=== PATIENT | female | born 1985 | race Caucasian/White ===

== ENCOUNTER 2017-12-25 07:59 | Emergency (ER) | payer OTHER ==
[2017-12-25 08:18] VITALS: BMI 27.8
--- NOTE | 2017-12-25 08:27 | PDOC ---
History of Present Illness - General Chief Complaint: Shortness of Breath Stated Complaint: FEVER, COUGH,CHEST PAIN Time Seen by Provider: 12/25/17 08:23 History Source: Patient, Parent(s) (Mother) Exam Limitations: No Limitations (Mother translating for pt) - History of Present Illness Initial Comments: Pt is a 32 yo F, with no significant PMH, who is presenting with dry cough and SOB x5 days. Pt states the cough has been non-productive, with no sputum or hemoptysis. She states the extended coughing is causing a feeling of chest pressure. Pt denies any fevers/chills, headache, vision changes, nausea/vomiting , abdominal pain, diarrhea/constipation, or leg swelling. Pt came from [place] 4 years ago, no recent travel or other sick contacts. Pt last took 400 mg Ibuprofen at 3 am night before presentation, with temporary relief of symptoms. Pt was seen at [facility] 4 days ago, provided 3 day azithromycin (z-pack) with no relief of symptoms. Past surgeries include ovarian cyst removal and colostomy bag placement, after an intestinal injury during the surgery. 12/26/17 14:05 12/26/17 14:41 Past History - Travel Traveled outside of the country in the last 30 days: No Close contact w/someone who was outside of country & ill: No - Past Medical History Allergies/Adverse Reactions: Allergies Allergy/AdvReac Type Severity Reaction Status Date / Time No Known Allergies Allergy Verified 12/25/17 08:04 Home Medications: Ambulatory Orders Acetaminophen [Tylenol] 650 mg PO QID PRN 12/25/17 Guaifenesin Dm [Mucinex Dm -] 1 tab PO BID 12/25/17 COPD: No CHF: No DVT: No HTN: No Hypercholesterolemia: No - Surgical History GI Surgery: Yes (colon resection/colostomy w/ reversal 2007) - Suicide/Smoking/Psychosocial Hx Smoking History: Never smoked Review of Systems - Review of Systems Able to Perform ROS?: Yes Is the patient limited Slovenian proficient: No Constitutional: Yes: Weight Stable. No: Chills, Diaphoresis, Fever, Loss of Appetite, Night Sweats, Weakness HEENTM: No: Blurred Vision, Recent change in vision, Nose Congestion, Throat Pain, Throat Swelling, Difficulty Swallowing Respiratory: Yes: Cough, Shortness of Breath. No: Orthopnea, SOB at Rest, Wheezing, Productive cough, Hemoptysis Cardiac (ROS): Yes: Chest Tightness (chest pressure after coughing). No: Chest Pain, Edema, Irregular Heart Rate, Lightheadedness, Palpitations, Syncope ABD/GI: No: Blood Streaked Bowels, Constipated, Diarrhea, Nausea, Poor Appetite , Poor Fluid Intake, Vomiting, Abdominal cramping : No: Dysuria, Frequency, Flank Pain, Hematuria, Incontinence, Pain, Urgency Musculoskeletal: No: Back Pain, Joint Pain, Muscle Weakness Integumentary: No: Bruising, Rash Neurological: No: Headache, Numbness, Seizure, Weakness, Unsteady Gait, Ataxia, Dizziness Psychiatric: No: Sleep Pattern Change, Change in Appetite Endocrine: No: Increased Urine, Change in Weight Hematologic/Lymphatic: No: Anemia, Blood Clots, Easy Bleeding, Easy Bruising *Physical Exam - Vital Signs Last Vital Signs Temp Pulse Resp BP Pulse Ox 98.2 F 111 H 20 117/78 97 12/25/17 08:07 12/25/17 08:07 12/25/17 08:07 12/25/17 08:07 12/25/17 08:07 - Physical Exam General Appearance: Yes: Nourished, Appropriately Dressed. No: Apparent Distress (Pt lying comfortably, tachycardic but pt shows no increased work of breathing.) HEENT: positive: EOMI, JANIA, Normal ENT Inspection, Normal Voice, Symmetrical, Pharynx Normal, Hearing Grossly Normal. negative: Scleral Icterus (R), Scleral Icterus (L), Pharyngeal Erythema, Tonsillar Exudate, Tonsillar Erythema, Nasal Congestion, Rhinorrhea Neck: positive: Trachea midline, Normal Thyroid, Supple. negative: Tender, Rigid, Lymphadenopathy (R), Lymphadenopathy (L) Respiratory/Chest: positive: Chest Tender (focal chest tenderness with palpation of anterior chest wall), Lungs Clear, Normal Breath Sounds, Labored Respiration (during pulmonary exam with deep breaths). negative: Respiratory Distress, Accessory Muscle Use, Rapid RR, Paradoxal Breathing, Crackles, Wheezing, Dullness, Plerual Rub Cardiovascular: positive: Regular Rhythm, S1, S2, Tachycardia. negative: Regular Rate, Edema, JVD, Murmur Vascular Pulses: Carotid (R): 4+, Carotid (L): 4+ Gastrointestinal/Abdominal: positive: Normal Bowel Sounds, Flat, Soft, Other ( midline well healed scar from prior abdominal surgeries). negative: Tender, Organomegaly, Pulsatile Mass Rectal Exam: positive: deferred Lymphatic: negative: Adenopathy, Tenderness Musculoskeletal: positive: Normal Inspection. negative: CVA Tenderness Extremity: positive: Normal Capillary Refill, Normal Inspection, Normal Range of Motion, Pelvis Stable. negative: Tender, Pedal Edema, Calf Tenderness Integumentary: positive: Normal Color, Dry, Warm, Other (mild decreased skin turgor in hands). 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 negative: Numbness, Sensory Deficit ED Treatment Course - LABORATORY CBC & Chemistry Diagram: 12/25/17 08:56 12/25/17 08:56 Medical Decision Making - Medical Decision Making Pt was seen at bedside, also will be seen by attending Dr. Ortiz. Pt presenting with dry cough and SOB x5 days. Pt states the cough has been non-productive, with no sputum or hemoptysis. She states the extended coughing is causing a feeling of chest pressure. Pt denies any fevers/chills, headache, vision changes , nausea/vomiting, abdominal pain, diarrhea/constipation, or leg swelling. Pt came from [place] 4 years ago, no recent travel or other sick contacts. Pt was seen at [facility] 4 days ago, provided 3 day azithromycin (z-pack) with no relief of symptoms. PE showed stable vitals, tachycardic (to 111), afebrile. Lung and heart sounds clear, no crackles or wheezes, good air movement. Mildly tachypneic during pulmonary exam. Considering viral URI vs bacterial pneumonia/bronchitis vs pleural effusion. Pt low risk for PE (no recent travel/surgeries, no estrogen use, no past DVTs). Ordered work-up including CBC, CMP, Mg, UA, urine , blood cultures, chest x-ray. Provided 1 g ofirmev and 1 L NS for improvement of [pain/symptom control]. Will continue to reassess pt and monitor for symptomatic improvement. 12/25/17 09:09 Labs sent, pending results. 12/25/17 09:09 CBC and CMP generally WNL. UA negative for infection, beta-hcg negative. Influenza swab negative for Flu A and B. ECG showed NSR, normal intervals, no sign of R heart strain, HR 88. Pt taken for chest x-ray. 12/25/17 09:39 Chest x-ray showed bi-basilar scarring or atelectasis. No acute process seen. Pt states SOB and symptoms have improved from 1 g Ofirmev and albuterol nebulizer treatment. Pt vitals stable, no longer tachycardic and dyspneic. Most likely viral URI. Considering normal lab results and imaging pt can be discharged to home with follow-up. Pt advised to follow-up with PCP in 1-2 days. Strict return precautions provided with pt understanding. 12/25/17 10:08 12/25/17 10:15 12/26/17 13:53 12/26/17 14:44 *DC/Admit/Observation/Transfer Diagnosis at time of Disposition: Viral URI - Discharge Dispostion Disposition: HOME Condition at time of disposition: Good Decision to Admit order: No - Referrals Referrals: Flavio Chapa MD [Non Staff, Medical] - - Patient Instructions Printed Discharge Instructions: DI for Viral Upper Respiratory Infection -- Adult Additional Instructions: You were seen in the ER today for cough and shortness of breath. The results of your labs and imaging today were normal. Please follow-up with your primary care doctor within 1-2 days to discuss your visit and make sure your symptoms have improved. Please return to the ER if you have any worsening pain, worsening fevers or chills, productive sputum or blood with coughing, loss of consciousness, inability to tolerate food or fluids, or any other concerns. You can continue to take tylenol or ibuprofen over the counter for pain and fever. - Post Discharge Activity
[2017-12-25] MEDS ORDERED: ACETAMINOPHEN 1000 MG/100 ML VIAL (NON FORMULARY) IVPB ONE (08:48)
[2017-12-25] MEDS ORDERED: ALBUTEROL SO4 0.083% IH SOL 2.5 MG/3 ML VIAL.NEB. NEB ONE (08:48)
[2017-12-25] MEDS ORDERED: ALBUTEROL SO4 2.5/IPRATROPIUM 0.5 INH SOL 3 ML VIAL.NEB. NEB ONE (09:06)
[2017-12-25] MEDS ORDERED: ACETAMINOPHEN INJECTION 100 ML IVPB ONE (09:07)
[2017-12-25 09:10] LABS: BASO % 0.7 % (0-2.0); EOS % 1.3 % (0-4.5); HEMATOCRIT 37.5 % (32.4-45.2); HEMOGLOBIN 12.5 GM/dL (10.7-15.3); LYMPH % 35.1 % (8-40); MCHC 33.4 g/dl (32.0-36.0); MEAN PLT VOLUME 8.3 fl (7.5-11.1); MONO % 6.8 % (3.8-10.2); NEUT % 56.1 % (42.8-82.8); PLATELET COUNT 316 K/MM3 (134-434); RBC 4.81 M/mm3 (3.60-5.2); RDW 15.5 % (11.6-15.6); WHITE BLOOD COUNT 5.8 K/mm3 (4.0-10.0)
--- NOTE | 2017-12-25 09:11 | PDOC ---
Attending Attestation - Resident Resident Name: ReoCarmelina - ED Attending Attestation I have performed the following: I have examined & evaluated the patient, The case was reviewed & discussed with the resident, I agree w/resident's findings & plan, Exceptions are as noted - HPI HPI: 12/25/17 09:08 32y F hx of ovarian cysts, presents with nonproductive cough / sore throat for approx 1 week. Patient states the symptoms started with a dry cough as well as a sore throat, she went to [facility] was given a Z-Filiberto and diagnosed with bronchitis. Patient notes that since then she had felt generally weak, he'll have the cough so presented for evaluation. Patient endorses mild chest pain when she is coughing however when she is not coughing she denies any discomfort all she also denies any dyspnea on exertion, hemoptysis, leg swelling. The patient has had no recent travel history. The patient's mother was also sick with URI like symptoms. Patient is not on any exogenous steroids - Physicial Exam PE: 12/25/17 10:02 GENERAL: The patient is awake, alert, and fully oriented, Nontoxic - in no acute distress. HEAD: Normocephalic, atraumatic. EYES: extraocular movements intact, sclera anicteric, conjunctiva clear. ENT: Normal voice, Moist mucous membranes. NECK: Normal range of motion, supple LUNGS: Breath sounds equal, clear to auscultation bilaterally. No wheezes, no rhonchi, no rales. HEART: Regular rate and rhythm, normal S1 and S2 without murmur, rub or gallop. ABDOMEN: Soft, nontender. No CVA tenderness EXTREMITIES: Normal range of motion, no edema. No calf tenderness, negative Homans sign NEUROLOGICAL: No facial assymetry, Normal speech PSYCH: Normal mood, normal affect. SKIN: Warm, Dry, normal turgor, - Medical Decision Making 12/25/17 10:04 32-year-old female presenting with URI like symptoms, noted be tachycardic at triage however she is well-appearing with an otherwise unremarkable physical exam. Suspect that her symptoms are secondary to her URI The patient is feeling improved currently As of tachypnea when manipulating x-ray Her is chest x-ray is negative for acute pulmonary disease, there is some atelectasis noted which was noted on prior x-ray. We'll discharge patient with supportive care and PMD follow-up Heart Score/ECG Review - ECG Impressions Comment:: 12/25/17 09:42 Twelve-lead EKG was performed and reviewed by me. There is normal sinus rhythm with a normal rate. Rate of 88 The axis is normal. The intervals are normal. There are no ST or T wave abnormalities.
[2017-12-25 09:18] LABS: HCG,QUALITATIVE URINE Negative
[2017-12-25 09:26] LABS: URINE APPEARANCE CLEAR; URINE BILIRUBIN NEGATIVE (<2.0 mg/dL); URINE COLOR YELLOW; URINE GLUCOSE (UA) NEGATIVE (NEGATIVE); URINE KETONE NEGATIVE (NEGATIVE); URINE LEUK ESTERASE NEGATIVE (NEGATIVE); URINE NITRITE NEGATIVE (NEGATIVE); URINE PROTEIN NEGATIVE (NEGATIVE); URINE UROBILINOGEN NEGATIVE mg/dL (0.2-1.0)
[2017-12-25 09:34] LABS: ALBUMIN 3.6 g/dl (3.4-5.0); ALK PHOS 64 U/L (45-117); ANION GAP 12 MMOL/L (8-16); BILIRUBIN,TOTAL 0.4 mg/dL (0.2-1); BLOOD UREA NITROGEN 12 mg/dL (7-18); CALCIUM 8.5 mg/dL (8.5-10.1); CHLORIDE 107 mmol/L (98-107); CO2 22 mmol/L (21-32); CREATININE 0.7 mg/dL (0.55-1.3); GLUCOSE,RANDOM 125 mg/dL (74-106); POTASSIUM 3.6 mmol/L (3.5-5.1); SGOT/AST 37 U/L (15-37); SGPT/ALT 55 U/L (13-61); SODIUM 141 mmol/L (136-145); TOT PROT 7.4 g/dl (6.4-8.2)
[2017-12-25 11:01] VITALS: BP 105/72; PULSE 86; TEMP 98.8
--- NOTE | 2017-12-26 12:10 | EKG ---
Test Reason : Blood Pressure : / mmHG Vent. Rate : 088 BPM Atrial Rate : 088 BPM P-R Int : 154 ms QRS Dur : 100 ms QT Int : 382 ms P-R-T Axes : 052 007 049 degrees QTc Int : 462 ms NORMAL SINUS RHYTHM NORMAL ECG NO PREVIOUS ECGS AVAILABLE Confirmed by MD HUMZA, RAYNE ([id number]) on 12/26/2017 12:09:42 PM Referred By: Confirmed By:RAYNE CHING MD
== END 2017-12-25 11:01 | disposition home or self-care (01) ==
LOC: JER 07:59
PROC: 3E0F7GC Introduction of Other Therapeutic Substance into Respiratory Tract, Via Natural or Artificial Opening (ICD-10-PCS; principal; 2017-12-25)
PROC: 3E033NZ Introduction of Analgesics, Hypnotics, Sedatives into Peripheral Vein, Percutaneous Approach (ICD-10-PCS; 2017-12-25)
DX: J06.9 Acute upper respiratory infection, unspecified (principal); B97.89 Other viral agents as the cause of diseases classified elsewhere
CPT/HCPCS: 36415; 71046-TC-FY; 80053; 81003; 83735; 84703; 85025; 87040; 87086; 87804; 93005; 93010; 94640; 96374; 99282-25; J0131

== ENCOUNTER 2018-05-27 12:24 | Inpatient (IN) | payer OTHER ==
[2018-05-27 12:28] VITALS: BMI 29.5
--- NOTE | 2018-05-27 12:58 | PDOC ---
History of Present Illness - General Chief Complaint: Pain Stated Complaint: COLD SYMPTOMS Time Seen by Provider: 05/27/18 12:49 - History of Present Illness Initial Comments: 05/27/18 13:14 32 year old woman G0 who presents with LLQ pain that is shjarp and rated 10/10 onset today at 0500 and has been cosntant since onset, she took an Advil now with weakness and dizziness while at work. The patient denies any fever at home. She admits to some nausea but denies any vomitign. denies diarrhea or constipation. She reports a history of abdomianl surgeries that occurred in [place] with an apparant removal of the fallopian tube that nicked the intestine 10 years ago and complication of colon resection, colostomy and reversal, the patient is unclear about the details of her surgery. The patient had a normal bm this AM but as not passed gas since this AM. She deneis chest pain, shortness of breath, recent travel or illness. Has no other complaints at bedside. [facility] 05/14/18 Past History - Past Medical History Allergies/Adverse Reactions: Allergies Allergy/AdvReac Type Severity Reaction Status Date / Time No Known Allergies Allergy Verified 05/27/18 12:28 Home Medications: Ambulatory Orders Acetaminophen [Tylenol] 650 mg PO QID PRN 12/25/17 COPD: No CHF: No DVT: No HTN: No Hypercholesterolemia: No - Surgical History GI Surgery: Yes (colon resection/colostomy w/ reversal 2007) - Suicide/Smoking/Psychosocial Hx Smoking History: Never smoked Review of Systems - Review of Systems Able to Perform ROS?: Yes Is the patient limited Croatian proficient: No Constitutional: No: Chills, Diaphoresis, Fever HEENTM: No: Blurred Vision, Tinnitus Respiratory: No: Cough, Orthopnea, Shortness of Breath, Hemoptysis Cardiac (ROS): No: Chest Pain, Lightheadedness, Palpitations, Syncope ABD/GI: Yes: Nausea. No: Constipated, Diarrhea, Vomiting : No: Burning, Dysuria, Flank Pain, Hematuria Musculoskeletal: No: Back Pain, Muscle Pain, Muscle Weakness Neurological: No: Headache, Numbness, Tingling *Physical Exam - Vital Signs Last Vital Signs Temp Pulse Resp BP Pulse Ox 101.5 F H 140 H 20 119/71 99 05/27/18 12:25 05/27/18 12:25 05/27/18 12:25 05/27/18 12:25 05/27/18 12:25 - Physical Exam Comments: 05/27/18 13:35 GENERAL: Awake, alert, and fully oriented, in no acute distress HEAD: No signs of trauma, normocephalic, atraumatic EYES: EOMI, sclera anicteric, conjunctiva clear ENT: oropharynx clear without exudates. Moist mucosa NECK: Normal ROM, supple LUNGS: No distress, speaks full sentences, clear to auscultation bilaterally HEART: Regular rate and rhythm, normal S1 and S2, no murmurs, rubs or gallops, peripheral pulses normal and equal bilaterally. ABDOMEN: Soft, LLQ tenderness normoactive bowel sounds. No guarding, no rebound. No masses EXTREMITIES : Normal inspection, Normal range of motion, no edema. No clubbing or cyanosis. NEUROLOGICAL: Cranial nerves II through XII grossly intact. Normal speech, no focal sensorimotor deficits SKIN: Warm, Dry, normal turgor, no rashes or lesions noted PELVIC: closed cervical os, thick white physiologic fluid, moderate CMT, no R adnexal tenderness ED Treatment Course - LABORATORY CBC & Chemistry Diagram: 05/27/18 13:25 05/27/18 13:02 Medical Decision Making - Medical Decision Making 05/27/18 13:19 32 year old woman G0 who presents with LLQ pain that is shjarp and rated 10/10 onset today at 0500 and has been cosntant since onset now with weakness and dizziness. The patient denies any fever at home. She admits to some nausea but denies any vomtiign. denies diarrhea or constipation. She reports a history of abdomianl surgeries that occurred in [place] with an apparant removal of the fallopian tube that nicked the intestine 10 years ago and complication of colon resection, colostomy and reversal, the patient is unclear about the details of her surgery. The patient had a normal bm this AM. ED course: ddx inblt: TOA vs ovarian torsion vs ectopic consider sbo as with abdominal surgical history patient less likely nephrolithiasis vs pyelo as patient without cva tenderness, without dyrusia heamturai less likely diverticular as iwthout diarreha, blodo in stool cbc, cmp, tvus, ua, ucx upreg fluids, tylenol, zofran 05/27/18 14:55 negative upreg, small UTI pateint reassessed, feels spme improvmenet of pain, still has LLQ tenderness 05/27/18 15:33 TVUS: paraovarian cyst unlikely to be TOA will order CTAP w/ IV contrast considering patient persistent LLQ pain 05/27/18 18:40 Patient reassessed Still has LLQ pain, temp 101.3F oral 05/27/18 19:04 OBGYN called,aware of patient will come see patient in AM, based on TVUS does not feel patient will need IRdrainaige however discusssed discrepancy in sice of mass on CT vs US. Patient to be admitted to medicine. discussed case with medicine resident. *DC/Admit/Observation/Transfer Diagnosis at time of Disposition: Tubo-ovarian abscess - Discharge Dispostion Condition at time of disposition: Fair Decision to Admit order: Yes - Referrals - Patient Instructions - Post Discharge Activity
[2018-05-27] MEDS ORDERED: SODIUM CHLORIDE 1,000 ML IV SCH ×2 (13:00→20:15)
[2018-05-27] MEDS ORDERED: ACETAMINOPHEN 1000 MG/100 ML VIAL (NON FORMULARY) IVPB ONE ×2 (13:00→18:40)
[2018-05-27] MEDS ORDERED: ACETAMINOPHEN INJECTION 100 ML IVPB ONE ×2 (13:10→19:31)
[2018-05-27] MEDS ORDERED: ONDANSETRON 4 MG/2 ML VIAL IVPUSH ONE (13:19)
[2018-05-27 13:22] LABS: EPI CELLS 8.8 /HPF (0-5); HCG,QUALITATIVE URINE Negative; URINE APPEARANCE CLEAR; URINE BACTERIA 159.4 /hpf (NEGATIVE); URINE BILIRUBIN NEGATIVE (NEGATIVE); URINE CASTS 2 /hpf (0-8); URINE COLOR YELLOW; URINE GLUCOSE (UA) NEGATIVE (NEGATIVE); URINE KETONE NEGATIVE (NEGATIVE); URINE LEUK ESTERASE 1+ (NEGATIVE); URINE NITRITE NEGATIVE (NEGATIVE); URINE PROTEIN NEGATIVE (NEGATIVE); URINE RBC 5 /hpf (0-4); URINE UROBILINOGEN 0.2 mg/dL (0.2-1.0); URINE WBC 16 /hpf (0-5)
--- NOTE | 2018-05-27 13:22 | PDOC ---
Attending Attestation - Resident Resident Name: Marissa Gallardo - ED Attending Attestation I have performed the following: I have examined & evaluated the patient, The case was reviewed & discussed with the resident, I agree w/resident's findings & plan, Exceptions are as noted - HPI HPI: 05/27/18 16:47 The patient is a 32-year-old female, with no past medical history, who presents to the ED with sudden onset of LLQ pain and fever this morning at 5AM. The patient describes the pain as constant, [id number], 10/10 in severity, nonradiating. Patient took Advil and proceeded to go to work. She became dizzy and weak and called her who brought the patient to the ER. She reports nausea, but no vomiting. Patient had a normal bowel movement this morning but states that she has not been passing gas. The patient has a history of fallopian tube removal (she is unsure which side) with a complication of partial colon resection/colostomy with reversal in 2007. The patient denies any chills, diarrhea, or constipation. Denies any urinary symptoms. Denies any chest pain or shortness of breath. Allergies: NKA Social History: None reported. Surgical History: Colon resection/colostomy with reversal 2007. PCP: Dr. Flavio Chapa. - Physicial Exam PE: 05/27/18 17:52 agree with resident exam - Medical Decision Making 05/27/18 17:52 32yo F presents to the ED with LLQ pain. Vitals with fever, tachycardia. +L adnexal ttp. +WBC 11. UPT neg. DDx includes TOA vs ovarian cyst vs diverticulitis vs colitis. TVUS with L paraovarian cyst vs TOA. Plan for CTAP to r/o other pathology which is pending. Case signed out to Dr. Pollard for f/u on diagnostics and dispo
[2018-05-27 13:33] LABS: BASO % 0.7 % (0-2.0); EOS % 0.1 % (0-4.5); HEMATOCRIT 36.5 % (32.4-45.2); HEMOGLOBIN 11.7 GM/dL (10.7-15.3); LYMPH % 12.5 % (8-40); MCH 24.5 pg (25.7-33.7); MEAN CELL VOLUME 76.6 fl (80-96); MEAN PLT VOLUME 8.3 fl (7.5-11.1); MONO % 7.8 % (3.8-10.2); NEUT % 78.9 % (42.8-82.8); PLATELET COUNT 263 K/MM3 (134-434); RBC 4.77 M/mm3 (3.60-5.2); RDW 17.1 % (11.6-15.6); WHITE BLOOD COUNT 11.4 K/mm3 (4.0-10.0)
[2018-05-27] MEDS ORDERED: ONDANSETRON 4 MG/2 ML VIAL ONE (13:36)
[2018-05-27 14:19] LABS: ALBUMIN 3.8 g/dl (3.4-5.0); ALK PHOS 61 U/L (45-117); ANION GAP 9 MMOL/L (8-16); BILIRUBIN,TOTAL 0.5 mg/dL (0.2-1); BLOOD UREA NITROGEN 11 mg/dL (7-18); CALCIUM 8.5 mg/dL (8.5-10.1); CHLORIDE 105 mmol/L (98-107); CO2 24 mmol/L (21-32); CREATININE 0.7 mg/dL (0.55-1.3); GLUCOSE,RANDOM 81 mg/dL (74-106); POTASSIUM 3.7 mmol/L (3.5-5.1); SGOT/AST 36 U/L (15-37); SGPT/ALT 50 U/L (13-61); SODIUM 138 mmol/L (136-145); TOT PROT 7.4 g/dl (6.4-8.2)
[2018-05-27] MEDS ORDERED: HYDROmorphone HCL CARPU-JECT 2 MG/1 ML DISP.SYRIN IVPUSH ONE (18:32)
--- NOTE | 2018-05-27 18:46 | PDOC ---
*Physical Exam - Vital Signs Last Vital Signs Temp Pulse Resp BP Pulse Ox 101.5 F H 140 H 20 119/71 99 05/27/18 12:25 05/27/18 12:25 05/27/18 12:25 05/27/18 12:25 05/27/18 12:25 ED Treatment Course - LABORATORY CBC & Chemistry Diagram: 05/27/18 13:25 05/27/18 13:02 - ADDITIONAL ORDERS Additional order review: Laboratory Results 05/27/18 05/27/18 05/27/18 14:20 13:05 13:02 Sodium 138 Potassium 3.7 Chloride 105 Carbon Dioxide 24 Anion Gap 9 BUN 11 Creatinine 0.7 Creat Clearance w eGFR 97.60 Random Glucose 81 Lactic Acid 2.0 Calcium 8.5 Total Bilirubin 0.5 AST 36 ALT 50 Alkaline Phosphatase 61 Total Protein 7.4 Albumin 3.8 Urine Color Yellow Urine Appearance Clear Urine pH 5.0 Ur Specific [place] 1.021 Urine Protein Negative Urine Glucose (UA) Negative Urine Ketones Negative Urine Blood Negative Urine Nitrite Negative Urine Bilirubin Negative Urine Urobilinogen 0.2 Ur Leukocyte Esterase 1+ H Urine WBC (Auto) 16 Urine RBC (Auto) 5 Urine Casts (Auto) 2 U Epithel Cells (Auto) 8.8 Urine Bacteria (Auto) 159.4 Urine HCG, Qual Negative 05/27/18 13:25 RBC 4.77 MCV 76.6 L MCHC 32.0 RDW 17.1 H MPV 8.3 Neutrophils % 78.9 D Lymphocytes % 12.5 D Monocytes % 7.8 Eosinophils % 0.1 D Basophils % 0.7 - Medications Given in the ED: ED Medications Discontinued Medications Generic Name Dose Route Start Last Admin Trade Name Rosalia PRN Reason Stop Dose Admin Acetaminophen 1,000 mg 05/27/18 13:00 05/27/18 13:24 Ofirmev Injection - IVPB 05/27/18 13:01 1,000 mg ONCE ONE Administration Ondansetron HCl 4 mg 05/27/18 13:19 05/27/18 13:44 Zofran Injection IVPUSH 05/27/18 13:20 4 mg ONCE ONE Administration Medical Decision Making - Medical Decision Making 05/27/18 18:34 32 yo female with PSH of abd surgery in [place] 10 years ago and presents with left lower quadrant, left pelvic pain and 101.5 oral temperature 05/27/18 19:44 CAT scan abdomen and pelvis reveals findings consistent with a tubo-ovarian abscess. Patient admitted for IV antibiotics and Gynecological consult *DC/Admit/Observation/Transfer Diagnosis at time of Disposition: Tubo-ovarian abscess - Discharge Dispostion Condition at time of disposition: Fair - Referrals - Patient Instructions - Post Discharge Activity
[2018-05-27] MEDS ORDERED: CLINDAMYCIN 900 MG PREMIX IVPB 900 MG/50 ML BAG IVPB ONE ×2 (19:02→19:08)
[2018-05-27] MEDS ORDERED: HYDROmorphone HCl 2 MG/ML VIAL ONE (19:08)
[2018-05-27] MEDS ORDERED: GENTAMICIN INJECTION 350 MG in SODIUM CHLORIDE 100 ML IVPB SCH (19:15)
[2018-05-27] MEDS ORDERED: GENTAMICIN IVPB SCH (19:37)
[2018-05-27] MEDS ORDERED: SODIUM CHLORIDE IVPB SCH (19:37)
--- NOTE | 2018-05-27 19:53 | HP ---
CHIEF COMPLAINT: sever abdominal pain PCP: Dr Flavio Seymour HISTORY OF PRESENT ILLNESS: 32 year old female chema speaking with pmhx of asthma presented to ED with one day history of sever abdominal pain, fever chills, N/V. The pain is LLQ , 9/10 , local non radiating ,started at 5 am continuous , worsening with movement or coughing , improved a little with naproxen that she take around 6 am , associated with nausea and one episode on NBNB vomiting,and generalized weakness , headache B/L frontal , and lightheadedness especially when she get up of bed. she never had similar pain in the past , pt LMP 2 weeks ago, she did not have her period in Feb,, with no kids , she denies any history of STDs, denies any genital rash ,or discharges ,denies itching , bad urine smell,dysuria , hematuria denies any HBV vaccine , last pap smear last December was normal, pt denies any cough , sob , chest pain , D/C, denies any back pain but reports hand and leg weakness started today. pt has a history of ovarian cust removed in [facility] and surgery was complicated with intestine perforation followed by 6 surgery on her abdomen. pt reports 30 pound weight gain in last 3 months after she quit her job due to asthma . cuurently working in [employer] business denies any recent cold or sick contact ER course was notable for: (1)cbc, cmp wbc 11.4 , LA 2 (2)trans vaginal sonogram (3)CT A/P Recent Travel: denies PAST MEDICAL HISTORY: Asthma PAST SURGICAL HISTORY: ovarian cyst complicated by intestinal perforation Social History: Smoking:denies Alcohol:denies Drugs: denies Family History:none Allergies No Known Allergies Allergy (Verified 05/27/18 12:28) HOME MEDICATIONS: Home Medications Medication Instructions Recorded Acetaminophen [Tylenol] 650 mg PO QID PRN 12/25/17 REVIEW OF SYSTEMS CONSTITUTIONAL: Absent: fever, chills, diaphoresis, generalized weakness, malaise, loss of appetite, weight change HEENT: Absent: rhinorrhea, nasal congestion, throat pain, throat swelling, difficulty swallowing, mouth swelling, ear pain, eye pain, visual changes CARDIOVASCULAR: Absent: chest pain, syncope, palpitations, irregular heart rate, lightheadedness , peripheral edema RESPIRATORY: Absent: cough, shortness of breath, dyspnea with exertion, orthopnea, wheezing, stridor, hemoptysis GASTROINTESTINAL: Absent: abdominal pain, abdominal distension, nausea, vomiting, diarrhea, constipation, melena, hematochezia GENITOURINARY: Absent: dysuria, frequency, urgency, hesitancy, hematuria, flank pain, genital pain MUSCULOSKELETAL: Absent: myalgia, arthralgia, joint swelling, back pain, neck pain SKIN: Absent: rash, itching, pallor HEMATOLOGIC/IMMUNOLOGIC: Absent: easy bleeding, easy bruising, lymphadenopathy, frequent infections ENDOCRINE: Absent: unexplained weight gain, unexplained weight loss, heat intolerance, cold intolerance NEUROLOGIC: Absent: headache, focal weakness or paresthesias, dizziness, unsteady gait, seizure, mental status changes, bladder or bowel incontinence PSYCHIATRIC: Absent: anxiety, depression, suicidal or homicidal ideation, hallucinations. PHYSICAL EXAMINATION Vital Signs - 24 hr 05/27/18 05/27/18 12:25 19:25 Temperature 101.5 F H 100.0 F H Pulse Rate 140 H Pulse Rate [ 118 H Right Radial] Respiratory 20 18 Rate Blood Pressure 119/71 Blood Pressure 93/53 L [Left Arm] O2 Sat by Pulse 99 93 L Oximetry (%) GENERAL: Awake, alert, and fully oriented, in no acute distress. HEAD: Normal with no signs of trauma. EYES: Pupils equal, round and reactive to light, extraocular movements intact, EARS, NOSE, THROAT:dry mucous membranes. NECK: Normal range of motion, supple LUNGS: Breath sounds equal, clear to auscultation bilaterally. No wheezes, and no crackles. No accessory muscle use. HEART: sinus tachy , normal S1 and S2 without murmur, rub or gallop. ABDOMEN:obese , Soft, LLQ and supra pubic tenderness , not distended, normoactive bowel sounds, surgical scar longitudinal and LLQ scar from previous cholostomy MUSCULOSKELETAL: Normal range of motion at all joints. No CVA tenderness. UPPER EXTREMITIES: 2+ pulses, warm, well-perfused. No cyanosis. No clubbing. No peripheral edema. LOWER EXTREMITIES: 2+ pulses, warm, well-perfused. No calf tenderness. No peripheral edema. NEUROLOGICAL: Cranial nerves II-XII intact. Normal speech. PSYCHIATRIC: Cooperative. SKIN: Warm, dry, normal turgor, Laboratory Results - last 24 hr 05/27/18 05/27/18 05/27/18 13:02 13:05 13:13 WBC RBC Hgb Hct MCV MCH MCHC RDW Plt Count MPV Absolute Neuts (auto) Neutrophils % Lymphocytes % Monocytes % Eosinophils % Basophils % Nucleated RBC % Sodium 138 Potassium 3.7 Chloride 105 Carbon Dioxide 24 Anion Gap 9 BUN 11 Creatinine 0.7 Creat Clearance w eGFR 97.60 Random Glucose 81 Lactic Acid Calcium 8.5 Total Bilirubin 0.5 AST 36 ALT 50 Alkaline Phosphatase 61 Total Protein 7.4 Albumin 3.8 Urine Color Yellow Urine Appearance Clear Urine pH 5.0 Ur Specific [place] 1.021 Urine Protein Negative Urine Glucose (UA) Negative Urine Ketones Negative Urine Blood Negative Urine Nitrite Negative Urine Bilirubin Negative Urine Urobilinogen 0.2 Ur Leukocyte Esterase 1+ H Urine WBC (Auto) 16 Urine RBC (Auto) 5 Urine Casts (Auto) 2 U Epithel Cells (Auto) 8.8 Urine Bacteria (Auto) 159.4 Urine HCG, Qual Negative Influenza A (Rapid) Negative Influenza B (Rapid) Negative 05/27/18 05/27/18 13:25 14:20 WBC 11.4 H RBC 4.77 Hgb 11.7 Hct 36.5 MCV 76.6 L MCH 24.5 L MCHC 32.0 RDW 17.1 H Plt Count 263 MPV 8.3 Absolute Neuts (auto) 9.0 H Neutrophils % 78.9 D Lymphocytes % 12.5 D Monocytes % 7.8 Eosinophils % 0.1 D Basophils % 0.7 Nucleated RBC % 0 Sodium Potassium Chloride Carbon Dioxide Anion Gap BUN Creatinine Creat Clearance w eGFR Random Glucose Lactic Acid 2.0 Calcium Total Bilirubin AST ALT Alkaline Phosphatase Total Protein Albumin Urine Color Urine Appearance Urine pH Ur Specific [place] Urine Protein Urine Glucose (UA) Urine Ketones Urine Blood Urine Nitrite Urine Bilirubin Urine Urobilinogen Ur Leukocyte Esterase Urine WBC (Auto) Urine RBC (Auto) Urine Casts (Auto) U Epithel Cells (Auto) Urine Bacteria (Auto) Urine HCG, Qual Influenza A (Rapid) Influenza B (Rapid) CBC, BMP 05/27/18 13:25 05/27/18 13:02 Trans vaginal US:05/27/18 Normal appearing uterus with normal thickness of the endometrial stripe. Normal appearing right ovary with multiple small simple cysts/follicles and normal vascular flow. Normal-appearing left ovary with a few small simple cysts /follicles and normal vascular flow. Left adnexal cystic density measuring 2.9 x 2.2 cm abutting the left ovary without peripheral vascular flow. It may represent a paraovarian cyst and less likely a tubular ovarian abscess considering the clinical history. Correlate clinically for further evaluation and follow-up ASSESSMENT/PLAN: 32 year old female with pmhx of asthma presented with one day h/o sever LLQ abdominal pain was found to be sepsis due to ovarian cyst infection vs PID will amdit to M/S for further evaluation. # sepsis due to ovarian /adnexal abscess vs PID * vitals 101.5, hr 140 low BP 93/53,with sever LLQ pain , wbc 11.4 * Sonogram trans vaginal with B/L ovarian cyst and anexal density abscess ?? * CT abdomen pending official reading * IV fluids NS Bolus and maintenance @ 100 CC/hr * Abx gentamycin and clindamycin in ED will cont with Doxycyclin 100 BID , and Cefipim 2 gm IV BID for 10 days * Tylenol and morphine for pain and fever * Consult ID Dr Rosario * Consult OBgyn * LA 2.0 will repeat * repeat lab in AM * will defer vaginal exam to Anvil Worker to find out id there is any cervical neck tenderness * chlamydia, GN , trichomonas and HIV screening # Asthma not on axacerbation * Albuterol PRN for SOB # FEN * regular diet * Monitor lytes * Regular diet # Proph * Dvts: scds , lovenox 40 SQ daily # Dispo * M/S # full code Visit type - Emergency Visit Emergency Visit: Yes ED Registration Date: 05/27/18 Care time: The patient presented to the Emergency Department on the above date and was hospitalized for further evaluation of their emergent condition. - New Patient This patient is new to me today: Yes Date on this admission: 05/28/18 - Critical Care Critical Care patient: No
--- NOTE | 2018-05-27 20:48 | PN ---
Teaching Attending Note Name of Resident: Deyvi Fontana ATTENDING PHYSICIAN STATEMENT I saw and evaluated the patient. I reviewed the resident's note and discussed the case with the resident. I agree with the resident's findings and plan as documented. SUBJECTIVE: This is a 32 year old woman with a history of salpingectomy in 2007 with complication requiring partial colectomy with colostomy which was later reversed who comes to the ED complaining of LLQ abdominal pain and fevers which started suddenly at 5 am today. She took ibuprofen and went to work. Later in the day, she felt weak and dizzy, and so she came to the ED. She has had nausea but no vomiting. Bowel movements have been normal. OBJECTIVE: Vital Signs Period Temp Pulse Resp BP Sys/[place]son Pulse Ox Last 24 Hr 100.0 F-101.5 F 118-140 18-20 93-119/53-71 93-99 HEART: S1S2, tachycardic LUNGS: Clear ABDOMEN: Soft, non-distended, (+) LLQ tenderness, LLQ pain increases with palpation of RLQ EXTREMITIES: No edema Laboratory Tests 05/27/18 05/27/18 05/27/18 13:02 13:05 13:13 WBC RBC Hgb Hct MCV MCH MCHC RDW Plt Count MPV Absolute Neuts (auto) Neutrophils % Lymphocytes % Monocytes % Eosinophils % Basophils % Nucleated RBC % Sodium 138 Potassium 3.7 Chloride 105 Carbon Dioxide 24 Anion Gap 9 BUN 11 Creatinine 0.7 Creat Clearance w eGFR 97.60 Random Glucose 81 Lactic Acid Calcium 8.5 Total Bilirubin 0.5 AST 36 ALT 50 Alkaline Phosphatase 61 Total Protein 7.4 Albumin 3.8 Urine Color Yellow Urine Appearance Clear Urine pH 5.0 Ur Specific [place] 1.021 Urine Protein Negative Urine Glucose (UA) Negative Urine Ketones Negative Urine Blood Negative Urine Nitrite Negative Urine Bilirubin Negative Urine Urobilinogen 0.2 Ur Leukocyte Esterase 1+ H Urine WBC (Auto) 16 Urine RBC (Auto) 5 Urine Casts (Auto) 2 U Epithel Cells (Auto) 8.8 Urine Bacteria (Auto) 159.4 Urine HCG, Qual Negative Influenza A (Rapid) Negative Influenza B (Rapid) Negative 05/27/18 05/27/18 13:25 14:20 WBC 11.4 H RBC 4.77 Hgb 11.7 Hct 36.5 MCV 76.6 L MCH 24.5 L MCHC 32.0 RDW 17.1 H Plt Count 263 MPV 8.3 Absolute Neuts (auto) 9.0 H Neutrophils % 78.9 D Lymphocytes % 12.5 D Monocytes % 7.8 Eosinophils % 0.1 D Basophils % 0.7 Nucleated RBC % 0 Sodium Potassium Chloride Carbon Dioxide Anion Gap BUN Creatinine Creat Clearance w eGFR Random Glucose Lactic Acid 2.0 Calcium Total Bilirubin AST ALT Alkaline Phosphatase Total Protein Albumin Urine Color Urine Appearance Urine pH Ur Specific [place] Urine Protein Urine Glucose (UA) Urine Ketones Urine Blood Urine Nitrite Urine Bilirubin Urine Urobilinogen Ur Leukocyte Esterase Urine WBC (Auto) Urine RBC (Auto) Urine Casts (Auto) U Epithel Cells (Auto) Urine Bacteria (Auto) Urine HCG, Qual Influenza A (Rapid) Influenza B (Rapid) Home Medications Medication Instructions Recorded Acetaminophen [Tylenol] 650 mg PO QID PRN 12/25/17 ASSESSMENT AND PLAN: This is a 32 year old woman with a history of salpingectomy in 2007 with complication requiring partial colectomy with colostomy which was later reversed who presented to the ED with sudden onset of LLQ abdominal pain and fever. 1. Sepsis (fever, tachycardia) secondary to possible infected hydrosalpinx, possible tubo-ovarian abscess, UTI - Patient denies history of STIs - Gentamicin, Clindamycin given in ED - Urine culture pending - Blood cultures not done - will do now, however antibiotics already given - Start Cefepime, doxycycline - IV fluid - Pain control - Repeat lactic acid - Check Chlamydia, gonorrhea - Project Design Engineer, ID consults
[2018-05-27] MEDS ORDERED: GENTAMICIN INJECTION 350 MG in SODIUM CHLORIDE 100 ML IVPB ONE (21:00)
[2018-05-27] MEDS ORDERED: SODIUM CHLORIDE 1,000 ML IV STA (21:11)
[2018-05-27] MEDS ORDERED: MORPHINE SULFATE 2 MG/ML VIAL IVPUSH PRN (21:11)
[2018-05-27] MEDS ORDERED: ACETAMINOPHEN 325 MG TABLET (FP) PO PRN (21:11)
[2018-05-27] MEDS ORDERED: ONDANSETRON 4 MG/2 ML VIAL IVPUSH PRN (21:18)
[2018-05-27] MEDS ORDERED: ALBUTEROL SO4 0.083% IH SOL 2.5 MG/3 ML VIAL.NEB. NEB PRN (21:21)
[2018-05-27] MEDS ORDERED: CEFEPIME HCL/D5W 2 GM/50 ML BAG IVPB SCH (22:00)
[2018-05-27] MEDS ORDERED: CEFEPIME 2 GM in DEXTROSE 5%-WATER 100 ML IVPB SCH (22:00)
[2018-05-27] MEDS: CEFEPIME 2 GM in DEXTROSE 5%-WATER 100 ML IVPB SCH (22:22)
[2018-05-27] MEDS: DOXYCYCLINE INJECTION 100 MG in DEXTROSE 5%-WATER - 100 ML IVPB SCH (22:56)
[2018-05-27] MEDS: SODIUM CHLORIDE 1,000 ML IV SCH (23:00)
[2018-05-28 07:11] LABS: BASO % 0.1 % (0-2.0); HEMATOCRIT 32.1 % (32.4-45.2); HEMOGLOBIN 10.3 GM/dL (10.7-15.3); LYMPH % 12.5 % (8-40); MCH 24.6 pg (25.7-33.7); MCHC 32.2 g/dl (32.0-36.0); MEAN CELL VOLUME 76.5 fl (80-96); MEAN PLT VOLUME 8.6 fl (7.5-11.1); MONO % 7.6 % (3.8-10.2); NEUT % 79.8 % (42.8-82.8); PLATELET COUNT 259 K/MM3 (134-434); RDW 17.7 % (11.6-15.6); WHITE BLOOD COUNT 14.3 K/mm3 (4.0-10.0)
[2018-05-28 07:35] LABS: ALK PHOS 46 U/L (45-117); ANION GAP 8 MMOL/L (8-16); BILIRUBIN,TOTAL 1.1 mg/dL (0.2-1); BLOOD UREA NITROGEN 7 mg/dL (7-18); CALCIUM 7.3 mg/dL (8.5-10.1); CHLORIDE 105 mmol/L (98-107); CO2 21 mmol/L (21-32); CREATININE 0.5 mg/dL (0.55-1.3); GLUCOSE,RANDOM 92 mg/dL (74-106); MAGNESIUM 1.3 mg/dL (1.8-2.4); PHOSPHOROUS 2.3 mg/dL (2.5-4.9); POTASSIUM 3.3 mmol/L (3.5-5.1); SGOT/AST 21 U/L (15-37); SGPT/ALT 33 U/L (13-61); SODIUM 135 mmol/L (136-145); TOT PROT 6.2 g/dl (6.4-8.2)
--- NOTE | 2018-05-28 08:10 | CONSULT ---
Consult Consult Specialty:: OBGYN - History of Present Illness Chief Complaint: Fevers, LLQ History of Present Illness: 32yo nulliparous female who presented to the ER with fevers and sudden LLQ pain x 1 day. No vaginal discharge/bleeding. Complicated surgical history 10yrs ago had appendix removed after experiencing RLQ pain. Pain did not resolve after surgery, returned to [place] and was told she had a cyst on her R ovary. Had RSO, complicated by bowel perforation at the time. Was also sent home on antibiotics for an infection, cannot recall how long she had to take antibiotics for. Had to have colonic resection, colostomy placed and eventually removed. Ultimately had 5 GI surgeries as a result of the bowel perforation. 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 Mario Cagle. Last seen Dec 2017. States all paps are normal. No history of STIs. No pregnancies, no contraception - History Source History Provided By: Patient Limitations to Obtaining History: Language Barrier - Past Medical History TRAINING REPRESENTATIVE: No: Alzheimer's, CVA, Dementia, Migraine, Multiple Sclerosis, Peripheral Neuropathy, Parkinson's, Seizure, Syncope, TIA, Vertigo, Other Pulmonary: Yes: Asthma Hepatobiliary: No: Cirrhosis, Cholelithiasis, Cholecystitis, Choledocholithiasis , Hepatitis A, Hepatitis B, Hepatitis C, Other Renal/: No: Renal Failure, Renal Inusuff, BPH, Cancer, Hematuria, Hemodialysis , Neurogenic Bladder, Renal Calculi, UTI, Other Reproductive: Yes: PID, Other (Salpingectomy) ...: No Infectious Disease: No: AIDS, C-Diff, Herpes Zoster, HIV, MRSA, STD's, Tuberculosis, VREF, Other Psych: No: Addictions, Anxiety, Bipolar, Depression, Panic, Psychosis, Schizophrenia, Other Musculoskeletal: No: Bursitis, Chronic low back pain, Hemiparesis, Hemiplegia, Osteoarthritis, Paraplegia, Other Rheumatology: No: Fibromyalgia, Gout, Lupus, Rheumatoid Arthritis, Sarcoidosis, Vasculitis, Other ENT: No: Allergic Rhinitis, Sinusitis, Other Endocrine: No: [place]'s Disease, Catarino's Disease, Diabetes Insipidus, Diabetes Mellitus, Hyperparathyroidism, Hyperthyroidism, Hypothyroidism, Osteopenia, SIADH, Other Dermatology: No: Basal Cell, Cellulitis, Eczema, Melanoma, Psoriasis, Squamous Cell, Other - Past Surgical History Past Surgical History: Yes: Appendectomy, Colostomy, Cystectomy Additional Surgical History: Salpingectomy, colon surgery - Alcohol/Substance Use Hx Alcohol Use: No History of Substance Use: reports: None - Smoking History Smoking history: Never smoked - Social History Place of : Other History of Recent Travel: No Home Medications - Allergies Allergies/Adverse Reactions: Allergies Allergy/AdvReac Type Severity Reaction Status Date / Time No Known Allergies Allergy Verified 05/27/18 12:28 - Home Medications Home Medications: Ambulatory Orders Acetaminophen [Tylenol] 650 mg PO QID PRN 12/25/17 Physical Exam Vital Signs: Vital Signs Temperature 100.1 F H 05/28/18 03:55 Pulse Rate 115 H 05/28/18 03:55 Respiratory Rate 18 05/28/18 03:55 Blood Pressure 116/50 L 05/28/18 03:55 O2 Sat by Pulse Oximetry (%) 96 05/28/18 02:27 Constitutional: Yes: Well Nourished, No Distress, Calm Eyes: Yes: WNL, Conjunctiva Clear, EOM Intact HENT: Yes: WNL, Atraumatic, Normocephalic Neck: Yes: WNL, Supple, Trachea Midline Cardiovascular: Yes: WNL, Regular Rate and Rhythm Respiratory: Yes: WNL, Regular, CTA Bilaterally Gastrointestinal: Yes: WNL, Soft, Tenderness (Diffuse tenderness, LLQ with the most exquisite tenderness. Voluntary guarding, no rebound) ...Rectal Exam: Yes: WNL Renal/: Yes: WNL, Other (Diffusely tender on pelvic exam, mild CMT, L adnexal tenderness, no discrete masses/fullness appreciated in the LLQ. RLQ also with moderate tenderness, but no masses/fullness appreciated) Breast(s): Yes: WNL Musculoskeletal: Yes: WNL Extremities: Yes: WNL Edema: No Integumentary: Yes: WNL Neurological: Yes: WNL, Alert, Oriented ...Motor Strength: WNL Psychiatric: Yes: WNL Labs: CBC, BMP 05/28/18 05:10 05/28/18 05:10 Imaging - Results X-ray: Report Reviewed Cat Scan: Report Reviewed Ultrasound: Report Reviewed Assessment/Plan 32yo with LLQ pain and fevers, concern for PID/TOA vs bowel abscess Admitted to medicine for concern regarding PID Started on Gent/Clinda in ER; ID consult pending, but agree with Gent/Clinda for coverage at this time. GC/CT cultures pending, likely to be negative. TVUS report reviewed and explicitly says no TOA. Ultrasound showed only a left 3cm paraovarian cyst- CT report describing L 7cm fluid collection, not clear the etiology if Ovarian vs Bowel (pt has had 5 GI surgeries). Would recommend IR consult to review images and see if pt is a candidate for IR drainage. If she is not a candidate for drainage and her clinical picture does not improve with IV antibiotics, I have discussed with the patient and medical team that she should be transferred to a tertiary care center with [employer]N ONC in the event that she needs surgical intervention to drain/remove the abscess. Given her extensive surgical history, for a total of 7 abdominal surgeries), it would be unwise to operate here without the support of [employer]ATIONAL MARKETING INTERN ONC and higher likelihood for complications given her complicated surgical history. All questions answered with patient and her father in [place]. Plan discussed with primary team as well. Sinai Buck MD
[2018-05-28] MEDS: SODIUM CHLORIDE 1,000 ML IV SCH (10:00)
[2018-05-28] MEDS ORDERED: ENOXAPARIN NA (PORCINE) 40 MG/0.4 ML DISP.SYRIN SQ SCH (10:00)
[2018-05-28] MEDS ORDERED: MORPHINE SULFATE 2 MG/ML VIAL IVPUSH PRN (10:49)
[2018-05-28] MEDS: DOXYCYCLINE INJECTION 100 MG in DEXTROSE 5%-WATER - 100 ML IVPB SCH ×3 (10:53→22:21)
[2018-05-28] MEDS: CEFEPIME 2 GM in DEXTROSE 5%-WATER 100 ML IVPB SCH (11:02)
[2018-05-28] MEDS ORDERED: CEFEPIME 2 GM in DEXTROSE 5%-WATER 100 ML IVPB ONE (11:20)
[2018-05-28] MEDS ORDERED: POTASSIUM PHOSPHATE IVPB SCH (11:40)
[2018-05-28] MEDS ORDERED: SODIUM CHLORIDE IVPB SCH (11:40)
--- NOTE | 2018-05-28 11:41 | PN ---
Teaching Attending Note Name of Resident: Miri Magaña ATTENDING PHYSICIAN STATEMENT I saw and evaluated the patient. I reviewed the resident's note and discussed the case with the resident. I agree with the resident's findings and plan as documented. SUBJECTIVE:c/o pelvic pain which improves with pain medication,. some nausea but no vomiting. denies CP, SOB, fever, chills V/C/D OBJECTIVE: Last Vital Signs Temp Pulse Resp BP Pulse Ox 100.1 F H 115 H 18 116/50 L 96 05/28/18 03:55 05/28/18 03:55 05/28/18 03:55 05/28/18 03:55 05/28/18 02:27 General mild distres due to pain CV S1 S2 tachy Lungs CTA B/L no wheezing/rales/rhonchi Abdomen RLQ/LLQ tenderness ASSESSMENT AND PLAN: 32 yo F with PMH of salpingectomy in 2007 with complication requiring partial colectomy with colostomy which was later reversed who presented to the ED with sudden onset of LLQ abdominal pain and fever and found to be septic due to PID vs infected cyst vs suspected GI pathology 1. Septic due to PID vs infected hydrosalpinx vs GI abscess- Tm 101.5 and remains tachycardic. will cont with aggressive IVF hydration. TVUS showing 2.9x2.2cm L adnexal cystic density. CT reading is grossly different than TVUS. will see if IR is able to drain this structure. if not will medically manage with abx and repeat imaging in a few days, if not improving will need to consider transfer to tertiary care center for surgical exploration. on Cefepime/ doxy. ID and assembler golf wood head consulted. f/u Cx. HIV pending 2. Hypokalemia- Kphos 3. Hypophosphatemia- Kphos 4. Hypomagnesemia- Mg 2g 5. DVT ppx- hold lovenox for possible intervention. can start if nothing is planned
[2018-05-28] MEDS ORDERED: KCL 10 MEQ IVPB 10 MEQ/100 ML INFUS.BAG IVPB SCH (11:45)
--- NOTE | 2018-05-28 11:47 | PN ---
Physical Exam: SUBJECTIVE: Patient seen and examined. Has some abdominal pain and spiking fevers. Ucx contaminated. OBJECTIVE: Vital Signs Period Temp Pulse Resp BP Sys/Lawson Pulse Ox Last 24 Hr 98.9 F-101.5 F 100-140 17-20 93-119/50-71 93-99 Vital Signs Temp 100.1 F H 05/28/18 03:55 Pulse 115 H 05/28/18 03:55 Resp 18 05/28/18 03:55 BP 116/50 L 05/28/18 03:55 Pulse Ox 96 05/28/18 02:27 Intake & Output 05/27/18 05/27/18 05/28/18 11:59 23:59 11:59 Intake Total 240 Output Total 400 Balance -160 Weight 90.718 kg 90.718 kg Intake: IV 240 Normal Saline - 1,000 ml 240 @ 100 mls/hr IV ASDIR RANDI Rx#:[id number] Output: Urine 400 Void 400 Other: Voiding Method Toilet Height 1.75 m 1.75 m Body Mass Index (BMI) 29.5 29.5 Weight Measurement Method Estimated by Patient GENERAL: The patient is awake, alert, and fully oriented, in no acute distress. ENT: moist mucous membranes. NECK: supple. LUNGS: Breath sounds equal, clear to auscultation bilaterally HEART: S1, S2 ABDOMEN: Soft, generalized tenderness+, EXTREMITIES: 2+ pulses, warm, well-perfused, no edema. NEUROLOGICAL: Cranial nerves II through XII grossly intact. CBC, BMP 05/28/18 05:10 05/28/18 05:10 Laboratory Results - last 24 hr 05/27/18 05/27/18 05/27/18 13:02 13:05 13:13 WBC RBC Hgb Hct MCV MCH MCHC RDW Plt Count MPV Absolute Neuts (auto) Neutrophils % Lymphocytes % Monocytes % Eosinophils % Basophils % Nucleated RBC % ESR Sodium 138 Potassium 3.7 Chloride 105 Carbon Dioxide 24 Anion Gap 9 BUN 11 Creatinine 0.7 Creat Clearance w eGFR 97.60 Random Glucose 81 Lactic Acid Calcium 8.5 Phosphorus Magnesium Total Bilirubin 0.5 AST 36 ALT 50 Alkaline Phosphatase 61 C-Reactive Protein Total Protein 7.4 Albumin 3.8 Urine Color Yellow Urine Appearance Clear Urine pH 5.0 Ur Specific Bay 1.021 Urine Protein Negative Urine Glucose (UA) Negative Urine Ketones Negative Urine Blood Negative Urine Nitrite Negative Urine Bilirubin Negative Urine Urobilinogen 0.2 Ur Leukocyte Esterase 1+ H Urine WBC (Auto) 16 Urine RBC (Auto) 5 Urine Casts (Auto) 2 U Epithel Cells (Auto) 8.8 Urine Bacteria (Auto) 159.4 Urine HCG, Qual Negative HIV 1&2 Antibody Screen HIV P24 Antigen Influenza A (Rapid) Negative Influenza B (Rapid) Negative 05/27/18 05/27/18 05/27/18 13:25 14:20 22:20 WBC 11.4 H RBC 4.77 Hgb 11.7 Hct 36.5 MCV 76.6 L MCH 24.5 L MCHC 32.0 RDW 17.1 H Plt Count 263 MPV 8.3 Absolute Neuts (auto) 9.0 H Neutrophils % 78.9 D Lymphocytes % 12.5 D Monocytes % 7.8 Eosinophils % 0.1 D Basophils % 0.7 Nucleated RBC % 0 ESR Sodium Potassium Chloride Carbon Dioxide Anion Gap BUN Creatinine Creat Clearance w eGFR Random Glucose Lactic Acid 2.0 2.1 H Calcium Phosphorus Magnesium Total Bilirubin AST ALT Alkaline Phosphatase C-Reactive Protein Total Protein Albumin Urine Color Urine Appearance Urine pH Ur Specific [place] Urine Protein Urine Glucose (UA) Urine Ketones Urine Blood Urine Nitrite Urine Bilirubin Urine Urobilinogen Ur Leukocyte Esterase Urine WBC (Auto) Urine RBC (Auto) Urine Casts (Auto) U Epithel Cells (Auto) Urine Bacteria (Auto) Urine HCG, Qual HIV 1&2 Antibody Screen HIV P24 Antigen Influenza A (Rapid) Influenza B (Rapid) 05/28/18 05/28/18 05/28/18 05:10 05:10 05:10 WBC 14.3 H RBC 4.20 Hgb 10.3 L Hct 32.1 L MCV 76.5 L MCH 24.6 L MCHC 32.2 RDW 17.7 H Plt Count 259 MPV 8.6 Absolute Neuts (auto) 11.4 H Neutrophils % 79.8 Lymphocytes % 12.5 Monocytes % 7.6 Eosinophils % 0.0 D Basophils % 0.1 Nucleated RBC % 0 ESR Sodium 135 L Potassium 3.3 L Chloride 105 Carbon Dioxide 21 Anion Gap 8 BUN 7 Creatinine 0.5 L Creat Clearance w eGFR 143.91 Random Glucose 92 Lactic Acid Calcium 7.3 L Phosphorus 2.3 L Magnesium 1.3 L Total Bilirubin 1.1 H AST 21 ALT 33 Alkaline Phosphatase 46 C-Reactive Protein Total Protein 6.2 L Albumin 3.0 L Urine Color Urine Appearance Urine pH Ur Specific [place] Urine Protein Urine Glucose (UA) Urine Ketones Urine Blood Urine Nitrite Urine Bilirubin Urine Urobilinogen Ur Leukocyte Esterase Urine WBC (Auto) Urine RBC (Auto) Urine Casts (Auto) U Epithel Cells (Auto) Urine Bacteria (Auto) Urine HCG, Qual HIV 1&2 Antibody Screen Negative HIV P24 Antigen Negative Influenza A (Rapid) Influenza B (Rapid) 05/28/18 05/28/18 05:10 05:10 WBC RBC Hgb Hct MCV MCH MCHC RDW Plt Count MPV Absolute Neuts (auto) Neutrophils % Lymphocytes % Monocytes % Eosinophils % Basophils % Nucleated RBC % ESR 23 H Sodium Potassium Chloride Carbon Dioxide Anion Gap BUN Creatinine Creat Clearance w eGFR Random Glucose Lactic Acid Calcium Phosphorus Magnesium Total Bilirubin AST ALT Alkaline Phosphatase C-Reactive Protein 12.2 H Total Protein Albumin Urine Color Urine Appearance Urine pH Ur Specific [place] Urine Protein Urine Glucose (UA) Urine Ketones Urine Blood Urine Nitrite Urine Bilirubin Urine Urobilinogen Ur Leukocyte Esterase Urine WBC (Auto) Urine RBC (Auto) Urine Casts (Auto) U Epithel Cells (Auto) Urine Bacteria (Auto) Urine HCG, Qual HIV 1&2 Antibody Screen HIV P24 Antigen Influenza A (Rapid) Influenza B (Rapid) Ambulatory Orders Acetaminophen [Tylenol] 650 mg PO QID PRN 12/25/17 Current Medications Acetaminophen (Tylenol -) 650 mg PO Q4H PRN PRN Reason: PAIN LEVEL 1-5 Last Admin: 05/28/18 09:13 Dose: 650 mg Acetaminophen (Ofirmev Injection -) 1,000 mg IVPB Q6H PRN PRN Reason: PAIN LEVEL 6-10 Albuterol Sulfate (Ventolin 0.083% Nebulizer Soln -) 1 amp NEB Q6H PRN PRN Reason: SHORT OF BREATH/WHEEZING Enoxaparin Sodium (Lovenox -) 40 mg SQ DAILY RANDI Last Admin: 05/28/18 10:32 Dose: Not Given Sodium Chloride (Normal Saline -) 1,000 mls @ 0 mls/hr IV ASDIR RANDI Last Admin: 05/27/18 13:23 Dose: 1,000 mls/hr Sodium Chloride (Normal Saline -) 1,000 mls @ 0 mls/hr IV ASDIR RANDI Last Admin: 05/27/18 20:03 Dose: 1,000 mls/hr Doxycycline Hyclate 100 mg/ (Dextrose) 100 mls @ 50 mls/hr IVPB BID RANDI Last Admin: 05/27/18 22:56 Dose: 50 mls/hr Cefepime HCl 2 gm/ Dextrose 100 mls @ 200 mls/hr IVPB BID RANDI; Protocol Potassium Phosphate 30 mm/ (Sodium Chloride) 1,010 mls @ 125 mls/hr IVPB ASDIR [facility]ANDI Magnesium Sulfate (Magnesium Sulfate) 2 gm IVPB ONCE ONE Stop: 05/28/18 11:41 Morphine Sulfate (Morphine Sulfate) 2 mg IVPUSH Q4H PRN PRN Reason: PAIN LEVEL 6-10 Ondansetron HCl (Zofran Injection) 4 mg IVPUSH Q6H PRN PRN Reason: NAUSEA Trans vaginal US:05/27/18 Normal appearing uterus with normal thickness of the endometrial stripe. Normal appearing right ovary with multiple small simple cysts/follicles and normal vascular flow. Normal-appearing left ovary with a few small simple cysts /follicles and normal vascular flow. Left adnexal cystic density measuring 2.9 x 2.2 cm abutting the left ovary without peripheral vascular flow. It may represent a paraovarian cyst and less likely a tubular ovarian abscess considering the clinical history. Correlate clinically for further evaluation and follow-up CTAP w/contrast: Consolidation/atelectasis is noted at both lung bases, right greater than left. The liver is normal in size. It is hypodense in texture consistent with diffuse fatty infiltration but no mass lesions identified within the liver. The spleen, pancreas, adrenal glands and kidneys demonstrate no significant abnormalities. There is no evidence of intra-abdominal or retroperitoneal lymphadenopathy or fluid collections. There is no evidence of pneumoperitoneum or bowel obstruction. There is no CT evidence of acute appendicitis or diverticulitis. Examination of the pelvis demonstrates an ill defined complex fluid collection within the mid pelvis extending towards the left adnexa. The collection measures approximately 7.3 x 5.1 x 7.2 cm. Inflammatory changes are noted within the adjacent mesenteric fat. Diagnostic possibilities would include PID with possible pyosalpinx or tubo-ovarian abscess. Clinical correlation and follow-up is recommended. There is no evidence of pelvic masses or lymphadenopathy. There is a moderate amount of retained fecal material within the colon. There is no evidence of acute bony pathology. IMPRESSION: Complex fluid collection within the mid pelvis extending towards the left adnexa. Diagnostic possibilities would include PID with possible pyosalpinx or TOA. Clinical correlation and follow-up recommended. Please see above discussion. ASSESSMENT/PLAN: 32 year old female with pmhx of asthma presented with one day h/o sever LLQ abdominal pain was found to be sepsis due to ovarian cyst infection vs PID will amdit to M/S for further evaluation. # sepsis secondary to ovarian /adnexal abscess vs PID * vitals 101.5, hr 140 low BP 93/53, with sever LLQ pain , wbc 11.4 at presentation * Sonogram trans vaginal with B/L ovarian cyst and adnexal density abscess * CT abdomen as above * IV fluids NS Bolus and maintenance @ 100 CC/hr * Abx gentamycin and clindamycin in ED * cont with Doxycycline 100 BID , and Cefipime 2 gm IV BID for 10 days * Tylenol and morphine for pain and fever * Consult ID Dr Sevilla * Consult OBgyn-D/W Obgyn- Did not note CMT but diffuse pelvic tenderness, no discharge, open to IR drainage vs transfer to tertiary center * LA 2.0 will repeat >>2.1 * chlamydia, GN , trichomonas and HIV screening- follow * D/w IR about drainage- Dr Barrett thinks due to loculations IR drainage will be limited and only buy time for patient until a transfer * D/W [facility] transfer center- ObGyb_ Dr Sheriff- suggested Doxy/cefoxitin instead of cefepime, thinks we need to give 24hrs on antibiotics and if still spiking consider IR drainage. Said Open drainage may not heal well but if needed may be done stat by general surgery. She will attempt to find a bed for transfer. * # Asthma not on axacerbation * Albuterol PRN for SOB # FEN * regular diet * Monitor lytes, Mg, Phosph, K repeteed * Regular diet # Proph * Dvts: scds , lovenox 40 SQ daily #Dispo Pending [facility] transfer to [facility] spoke with Dr Sheriff if bed available Visit type - Emergency Visit Emergency Visit: Yes ED Registration Date: 05/27/18 Care time: The patient presented to the Emergency Department on the above date and was hospitalized for further evaluation of their emergent condition. - New Patient This patient is new to me today: Yes Date on this admission: 05/29/18 - Critical Care Critical Care patient: No - Discharge Referral Referred to [facility] Med P.C.: No
[2018-05-28] MEDS ORDERED: MAGNESIUM SULF 50% (8.12 MEQ/2 ML-1 GM VIAL) IVPB ONE (14:00)
[2018-05-28] MEDS: ACETAMINOPHEN 1000 MG/100 ML VIAL (NON FORMULARY) IVPB PRN ×2 (14:00→20:20)
[2018-05-28] MEDS ORDERED: SODIUM CHLORIDE 1,000 ML with POTASSIUM CHLORIDE 40 MEQ IVPB SCH (14:00)
--- NOTE | 2018-05-28 14:41 | CON.ID ---
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: No: Alzheimer's, CVA, Dementia, Migraine, Multiple Sclerosis, Peripheral Neuropathy, Parkinson's, Seizure, Syncope, TIA, Vertigo, Other Pulmonary: Yes: Asthma Hepatobiliary: No: Cirrhosis, Cholelithiasis, Cholecystitis, Choledocholithiasis , Hepatitis A, Hepatitis B, Hepatitis C, Other Renal/: No: Renal Failure, Renal Inusuff, BPH, Cancer, Hematuria, Hemodialysis , Neurogenic Bladder, Renal Calculi, UTI, Other ...: No Infectious Disease: No: AIDS, C-Diff, Herpes Zoster, HIV, MRSA, STD's, Tuberculosis, VREF, Other Psych: No: Addictions, Anxiety, Bipolar, Depression, Panic, Psychosis, Schizophrenia, Other Musculoskeletal: No: Bursitis, Chronic low back pain, Hemiparesis, Hemiplegia, Osteoarthritis, Paraplegia, Other Rheumatology: No: Fibromyalgia, Gout, Lupus, Rheumatoid Arthritis, Sarcoidosis, Vasculitis, Other ENT: No: Allergic Rhinitis, Sinusitis, Other Endocrine: No: Jewell's Disease, Delavan's Disease, Diabetes Insipidus, Diabetes Mellitus, Hyperparathyroidism, Hyperthyroidism, Hypothyroidism, Osteopenia, SIADH, Other Dermatology: No: Basal Cell, Cellulitis, Eczema, Melanoma, Psoriasis, Squamous Cell, Other - Past Surgical History Past Surgical History: Yes: Appendectomy, Colostomy, Cystectomy Additional Surgical History: Salpingectomy, colon surgery - Alcohol/Substance Use Hx Alcohol Use: No History of Substance Use: reports: None - Smoking History Smoking history: Never smoked - Social History History of Recent Travel: No Home Medications - Allergies Allergies/Adverse Reactions: Allergies Allergy/AdvReac Type Severity Reaction Status Date / Time No Known Allergies Allergy Verified 05/27/18 12:28 - Home Medications Home Medications: Ambulatory Orders Acetaminophen [Tylenol] 650 mg PO QID PRN 12/25/17 Physical Exam Vital Signs: Vital Signs Temperature 101.2 F H 05/28/18 14:16 Pulse Rate 113 H 05/28/18 14:16 Respiratory Rate 20 05/28/18 14:16 Blood Pressure 140/53 L 05/28/18 14:16 O2 Sat by Pulse Oximetry (%) 96 05/28/18 02:27 Labs: CBC, BMP 05/28/18 05:10 05/28/18 05:10
[2018-05-28] MEDS: LACTATED RINGERS SOLUTION 1000 ML INFUS.BAG IV ONE ×2 (15:00→18:52)
[2018-05-28] MEDS ORDERED: LACTATED RINGERS SOLUTION 1,000 ML/1,000 ML INFUS.BAG IV SCH (15:00)
[2018-05-28] MEDS ORDERED: SODIUM CHLORIDE 0.9%/KCL 20 MEQ/1,000 ML INFUS.BAG IV SCH (15:11)
[2018-05-28] MEDS ORDERED: SODIUM CHLORIDE 1,000 ML IV STA (15:12)
--- NOTE | 2018-05-28 15:18 | EKG ---
Test Reason : Blood Pressure : / mmHG Vent. Rate : 113 BPM Atrial Rate : 113 BPM P-R Int : 180 ms QRS Dur : 104 ms QT Int : 344 ms P-R-T Axes : 050 -03 043 degrees QTc Int : 471 ms SINUS TACHYCARDIA OTHERWISE NORMAL ECG WHEN COMPARED WITH ECG OF 27-MAY-2018 22:41, NO SIGNIFICANT CHANGE WAS FOUND Confirmed by DAYANA SPRINGER MD ([id number]) on 05/28/2018 3:18:12 PM Referred By: Confirmed By:DAYANA SPRINGER MD
[2018-05-28] MEDS ORDERED: POTASSIUM PHOSPHATE 20 MM in DEXTROSE 5%-WATER - 250 ML IVPB ONE (16:30)
[2018-05-28] MEDS ORDERED: CEFEPIME 1 GM in DEXTROSE 5%-WATER 100 ML IVPB SCH (18:00)
--- NOTE | 2018-05-28 20:24 | DS ---
Physical Exam: SUBJECTIVE: Patient seen and examined. Has some abdominal pain and spiking fevers. Ucx contaminated. OBJECTIVE: Vital Signs Period Temp Pulse Resp BP Sys/Lawson Pulse Ox Last 24 Hr 98.9 F-101.2 F 100-118 17-20 98-140/50-67 94-96 Vital Signs Temp 100.1 F H 05/28/18 03:55 Pulse 115 H 05/28/18 03:55 Resp 18 05/28/18 03:55 BP 116/50 L 05/28/18 03:55 Pulse Ox 96 05/28/18 02:27 Intake & Output 05/27/18 05/27/18 05/28/18 11:59 23:59 11:59 Intake Total 240 Output Total 400 Balance -160 Weight 90.718 kg 90.718 kg Intake: IV 240 Normal Saline - 1,000 ml 240 @ 100 mls/hr IV ASDIR [facility] Rx#:[id number] Output: Urine 400 Void 400 Other: Voiding Method Toilet Height 1.75 m 1.75 m Body Mass Index (BMI) 29.5 29.5 Weight Measurement Method Estimated by Patient GENERAL: The patient is awake, alert, and fully oriented, in no acute distress. ENT: moist mucous membranes. NECK: supple. LUNGS: Breath sounds equal, clear to auscultation bilaterally HEART: S1, S2 ABDOMEN: Soft, generalized tenderness+, EXTREMITIES: 2+ pulses, warm, well-perfused, no edema. NEUROLOGICAL: Cranial nerves II through XII grossly intact. LABS Laboratory Results - last 24 hr 05/27/18 05/28/18 05/28/18 22:20 05:10 05:10 WBC 14.3 H RBC 4.20 Hgb 10.3 L Hct 32.1 L MCV 76.5 L MCH 24.6 L MCHC 32.2 RDW 17.7 H Plt Count 259 MPV 8.6 Absolute Neuts (auto) 11.4 H Neutrophils % 79.8 Lymphocytes % 12.5 Monocytes % 7.6 Eosinophils % 0.0 D Basophils % 0.1 Nucleated RBC % 0 ESR Sodium Potassium Chloride Carbon Dioxide Anion Gap BUN Creatinine Creat Clearance w eGFR Random Glucose Lactic Acid 2.1 H Calcium Phosphorus Magnesium Total Bilirubin AST ALT Alkaline Phosphatase C-Reactive Protein Total Protein Albumin HIV 1&2 Antibody Screen Negative HIV P24 Antigen Negative 05/28/18 05/28/1805/28/19 05:10 05:10 05:10 WBC RBC Hgb Hct MCV MCH MCHC RDW Plt Count MPV Absolute Neuts (auto) Neutrophils % Lymphocytes % Monocytes % Eosinophils % Basophils % Nucleated RBC % ESR 23 H Sodium 135 L Potassium 3.3 L Chloride 105 Carbon Dioxide 21 Anion Gap 8 BUN 7 Creatinine 0.5 L Creat Clearance w eGFR 143.91 Random Glucose 92 Lactic Acid Calcium 7.3 L Phosphorus 2.3 L Magnesium 1.3 L Total Bilirubin 1.1 H AST 21 ALT 33 Alkaline Phosphatase 46 C-Reactive Protein 12.2 H Total Protein 6.2 L Albumin 3.0 L HIV 1&2 Antibody Screen HIV P24 Antigen Ambulatory Orders Acetaminophen [Tylenol] 650 mg PO QID PRN 12/25/17 Current Medications Acetaminophen (Tylenol -) 650 mg PO Q4H PRN PRN Reason: PAIN LEVEL 1-5 Last Admin: 05/28/18 09:13 Dose: 650 mg Acetaminophen (Ofirmev Injection -) 1,000 mg IVPB Q6H PRN PRN Reason: PAIN LEVEL 6-10 Albuterol Sulfate (Ventolin 0.083% Nebulizer Soln -) 1 amp NEB Q6H PRN PRN Reason: SHORT OF BREATH/WHEEZING Enoxaparin Sodium (Lovenox -) 40 mg SQ DAILY [facility] Last Admin: 05/28/18 10:32 Dose: Not Given Sodium Chloride (Normal Saline -) 1,000 mls @ 0 mls/hr IV ASDIR RANDI Last Admin: 05/27/18 13:23 Dose: 1,000 mls/hr Sodium Chloride (Normal Saline -) 1,000 mls @ 0 mls/hr IV ASDIR RANDI Last Admin: 05/27/18 20:03 Dose: 1,000 mls/hr Doxycycline Hyclate 100 mg/ (Dextrose) 100 mls @ 50 mls/hr IVPB BID RANDI Last Admin: 05/27/18 22:56 Dose: 50 mls/hr Cefepime HCl 2 gm/ Dextrose 100 mls @ 200 mls/hr IVPB BID [facility]; Protocol Potassium Phosphate 30 mm/ (Sodium Chloride) 1,010 mls @ 125 mls/hr IVPB ASDIR RANDI Magnesium Sulfate (Magnesium Sulfate) 2 gm IVPB ONCE ONE Stop: 05/28/18 11:41 Morphine Sulfate (Morphine Sulfate) 2 mg IVPUSH Q4H PRN PRN Reason: PAIN LEVEL 6-10 Ondansetron HCl (Zofran Injection) 4 mg IVPUSH Q6H PRN PRN Reason: NAUSEA Imaging: Trans vaginal US:05/27/18 Normal appearing uterus with normal thickness of the endometrial stripe. Normal appearing right ovary with multiple small simple cysts/follicles and normal vascular flow. Normal-appearing left ovary with a few small simple cysts /follicles and normal vascular flow. Left adnexal cystic density measuring 2.9 x 2.2 cm abutting the left ovary without peripheral vascular flow. It may represent a paraovarian cyst and less likely a tubular ovarian abscess considering the clinical history. Correlate clinically for further evaluation and follow-up CTAP w/contrast 05/27/18: Consolidation/atelectasis is noted at both lung bases, right greater than left. The liver is normal in size. It is hypodense in texture consistent with diffuse fatty infiltration but no mass lesions identified within the liver. The spleen, pancreas, adrenal glands and kidneys demonstrate no significant abnormalities. There is no evidence of intra-abdominal or retroperitoneal lymphadenopathy or fluid collections. There is no evidence of pneumoperitoneum or bowel obstruction. There is no CT evidence of acute appendicitis or diverticulitis. Examination of the pelvis demonstrates an ill defined complex fluid collection within the mid pelvis extending towards the left adnexa. The collection measures approximately 7.3 x 5.1 x 7.2 cm. Inflammatory changes are noted within the adjacent mesenteric fat. Diagnostic possibilities would include PID with possible pyosalpinx or tubo-ovarian abscess. Clinical correlation and follow-up is recommended. There is no evidence of pelvic masses or lymphadenopathy. There is a moderate amount of retained fecal material within the colon. There is no evidence of acute bony pathology. IMPRESSION: Complex fluid collection within the mid pelvis extending towards the left adnexa. Diagnostic possibilities would include PID with possible pyosalpinx or TOA. Clinical correlation and follow-up recommended. Please see above discussion. HOSPITAL COURSE: Date of Admission:05/27/18 Date of Discharge: 05/28/18 Pre-Hospital Course Per Dr Fontana 32 year old female deeich speaking with pmhx of asthma presented to ED with one day history of sever abdominal pain, fever chills, N/V. The pain is LLQ , 9/10 , local non radiating ,started at 5 am continuous , worsening with movement or coughing , improved a little with naproxen that she take around 6 am , associated with nausea and one episode on NBNB vomiting,and generalized weakness , headache B/L frontal , and lightheadedness especially when she get up of bed. she never had similar pain in the past , pt LMP 2 weeks ago, she did not have her period in Feb,, with no kids , she denies any history of STDs, denies any genital rash ,or discharges ,denies itching , bad urine smell,dysuria , hematuria denies any HBV vaccine , last pap smear last December was normal, pt denies any cough , sob , chest pain , D/C, denies any back pain but reports hand and leg weakness started today. pt has a history of ovarian cust removed in [facility] and surgery was complicated with intestine perforation followed by 6 surgery on her abdomen. pt reports 30 pound weight gain in last 3 months after she quit her job due to asthma . cuurently working in [employer] business denies any recent cold or sick contact ER course was notable for: (1)cbc, cmp wbc 11.4 , LA 2 (2)trans vaginal sonogram (3)CT A/P Hospital Course Pt is a 32 year old female with pmhx of asthma who presented with one day h/o sever LLQ abdominal pain was found to be sepsis due to tubo-ovarian abscess Pt was admitted for sepsis secondary to ovarian /adnexal abscess vs PID . She received iv gentamycin and clindamycin in ED, then continued with Doxycycline 100 BID , and Cefipime 2 gm IV BID per ID (Dr Sevilla). She received hydration with NS and LR with electrolyte repletion as needed and pain management with iv morphine and iv tylenol for fevers/pain. Samples were taken for chlamydia, GN , trichomonas and HIV screening. Obgyn was consulted and on their pelvic examination did not note CMT but diffuse pelvic tenderness, no discharge. Obgyn was open to IR drainage. Dr Barrett however thought that due to loculations seen in the collection, IR drainage will be limited and would only buy time for patient until transfer to a tertiary center. D/W [facility]- ObGyb_ Dr Sheriff- suggested Doxy/cefoxitin instead of cefepime, thinks we need to give 24hrs on antibiotics and if still spiking consider IR drainage. Dr Sheriff discouraged open drainage of the abscess as it may not heal well, but suggested that if the patient decompensated and drainage was needed, it may be done stat by general surgery. Dr Sheriff however accepted the patient for transfer pending bed availability. For Asthma, she was not on exacerbation Pateint was later transferred in the evening of 05/28/2018 to [facility] under Dr Sheriff for higher level of care. Minutes to complete discharge: 40 Discharge Summary Reason For Visit: TUVO-OVARIAN ABSCESS Current Active Problems Tubo-ovarian abscess (Acute) Condition: Guarded - Instructions Diet, Activity, Other Instructions: You were admitted to the hospital because you were having belly pain and fever. Ultrasound was done which showed bilateral ovarian cyst and abscess. You were started on IV antibiotics. You will be transferred to a tertiary center for higher level of care. Referrals: Flavio Chapa MD [Primary Care Provider] - Disposition: TRANSFER ACUTE CARE/OTHER HOSP - Home Medications Comprehensive Discharge Medication List: Ambulatory Orders Acetaminophen [Tylenol] 650 mg PO QID PRN 12/25/17 This patient is new to me today: Yes Date on this admission: 05/28/18 Emergency Visit: Yes ED Registration Date: 05/27/18 Care time: The patient presented to the Emergency Department on the above date and was hospitalized for further evaluation of their emergent condition. Critical Care patient: No - Discharge Referral Referred to [facility] Med P.C.: No
[2018-05-28 22:13] VITALS: BP 108/66; PULSE 115; TEMP 98.9
== END 2018-05-28 21:30 | disposition short-term general hospital (02) | DRG 720 ==
LOC: JER 12:24 → JERBED 19:56 → J3W 05-28 04:29
PROVIDERS: ADMIT Internal Medicine; ATTEND Internal Medicine
DX: A41.9 Sepsis, unspecified organism (principal); N70.03 Acute salpingitis and oophoritis; N83.202 Unspecified ovarian cyst, left side; N83.201 Unspecified ovarian cyst, right side; R50.9 Fever, unspecified; J45.909 Unspecified asthma, uncomplicated; N73.9 Female pelvic inflammatory disease, unspecified; E87.6 Hypokalemia; E83.39 Other disorders of phosphorus metabolism; E83.42 Hypomagnesemia; R10.32 Left lower quadrant pain; J98.11 Atelectasis; N39.0 Urinary tract infection, site not specified; K76.0 Fatty (change of) liver, not elsewhere classified; R00.0 Tachycardia, unspecified; D72.829 Elevated white blood cell count, unspecified
CPT/HCPCS: 36415; 71045-TC-FY; 74177-TC; 76830-TC; 80053; 81003; 83605; 83735; 84100; 84703; 85025; 85651; 86140; 87040; 87086; 87389; 87491; 87591; 87804; 93005; 93010; 99285-25; J0131; J7030